=== PATIENT | female | born 1980 | race Two or more races ===

== ENCOUNTER 2024-03-04 09:30 | Inpatient (IN) | payer OTHER ==
[~2024-03-04] VITALS: Ht 154.9 cm; Wt 3.2 kg
[2024-03-04] MEDS ORDERED: XYZAL5 MG (10:12)
[2024-03-04] MEDS ORDERED: OBSTETRIX ONE1 EAC1 PO (10:13)
[2024-03-04 10:38] LABS: HEMATOCRIT 31.4 % (36.0-45.00); MEAN CELL VOLUME 80.5 fL (80.00-100.00); MEAN CORPUSCULAR HGB CONC 33.2 g/dl (32.0-36.0); PLATELET COUNT 209 K/uL (150-450); RED CELL DISTRIBUTION WIDTH 17.7 % (11.5-14.5)
[2024-03-04 10:39] LABS: PH,URINE 6.5 (5.0-8.0); URINE APPEARANCE Clear; URINE BILIRRUBIN Negative (NEGATIVE); URINE BLOOD Negative; URINE COLOR Yellow; URINE GLUCOSE Negative (NEGATIVE); URINE KETONE Negative (NEGATIVE); URINE LEUKOCYTE Small; URINE NITRATE Negative; URINE PROTEIN Negative (NEGATIVE)
[2024-03-04 10:41] LABS: URINE BACTERIA 2936.9 uL (0.0-1933); URINE EPITHELIAL CELLS 24.1 uL (0.0-38.8); URINE RBC 37.2 uL (0.0-20.8)
[2024-03-04 10:53] LABS: HEMOGLOBIN 10.4 g/dL (12.0-15.00); MEAN CORPUSCULAR HEMOGLOBIN 26.6 pg (27.00-32.0)
[2024-03-04 10:56] LABS: INR < 0.93; PARTIAL THROMBOPLASTIN TIME 25.4 SECONDS (22.0-34.0); PROTHROMBIN TIME 10.2 SECONDS (9.0-11.5)
[2024-03-04 11:10] LABS: ALBUMIN 2.8 gm/dL (3.4-5.0); BILIRUBIN TOTAL 0.33 mg/dL (0.3-1.2); CREATININE SERUM 0.58 mg/dL (0.55-1.02); GFR 114.56; POTASSIUM 3.92 mEq/L (3.5-5.1); TOTAL PROTEIN 6.8 gm/dL (6.4-8.2)
[2024-03-09] VITALS (7 sets, daily range): BP systolic 115–129; BP diastolic 75–79
[2024-03-09] MEDS ORDERED: RINGERS SOLUTION,LACTATED 1,000 ML IV SCH ×2 (01:45→05:00)
[2024-03-09] MEDS ORDERED: GENTAMICIN SULFATE 40 MG/ML VIAL IV SCH (01:45)
[2024-03-09] MEDS ORDERED: CITRIC ACID/SODIUM CITRATE 30 ML BLIST.PACK PO SCH (01:45)
[2024-03-09] MEDS ORDERED: CLINDAMYCIN PHOSPHATE 150 MG/ML (900mg) IV SCH (01:45)
[2024-03-09] MEDS ORDERED: MORPHINE SULFATE 4 MG/ML CARTRIDGE IV PRN ×2 (02:30→05:00)
[2024-03-09] MEDS ORDERED: MORPHINE SULFATE 2 MG/ML CARTRIDGE IV ONE (04:15)
[2024-03-09] MEDS ORDERED: OXYTOCIN 1,000 ML IV ONE (05:00)
[2024-03-09] MEDS ORDERED: ONDANSETRON HCL 2 MG/ML VIAL IV SCH (06:00)
[2024-03-09] MEDS ORDERED: ACETAMINOPHEN 500 MG GEL..CAP PO SCH (06:00)
[2024-03-09] MEDS ORDERED: KETOROLAC TROMETHAMINE 30 MG VIAL IV SCH (06:00)
[2024-03-09] MEDS ORDERED: OXYTOCIN 10 UNITS/ML VIAL IV ONE (06:30)
[2024-03-09] MEDS ORDERED: ERYTHROMYCIN BASE OPHT 1GM EACH TUBE OP ONE (06:30)
[2024-03-09] MEDS ORDERED: GABAPENTIN 300 MG CAPSULE PO SCH (09:00)
[2024-03-09] MEDS ORDERED: DOCUSATE SODIUM 100MG CAP PO SCH (09:00)
[2024-03-09] MEDS ORDERED: SIMETHICONE 125 MG CAPSULE PO SCH (09:00)
[2024-03-09 18:05] LABS: MEAN CELL VOLUME 81.2 fL (80.00-100.00); MEAN CORPUSCULAR HGB CONC 32.6 g/dl (32.0-36.0); PLATELET COUNT 185 K/uL (150-450); RED BLOOD COUNT 3.33 M/uL (4.00-6.00); RED CELL DISTRIBUTION WIDTH 17.9 % (11.5-14.5)
[2024-03-09 18:10] LABS: HEMOGLOBIN 8.8 g/dL (12.0-15.00); MEAN CORPUSCULAR HEMOGLOBIN 26.4 pg (27.00-32.0)
[2024-03-10] VITALS: BP 99/62
[2024-03-10] MEDS ORDERED: KETOROLAC TROMETHAMINE 10 MG TABLET PO SCH (08:00)
[2024-03-10] MEDS ORDERED: OxyCODONE HCL 5 MG TABLET (ROXICODONE) PO PRN (08:00)
[2024-03-10 08:40] VITALS: BP 115/70
[2024-03-10 13:22] VITALS: BP 133/69
[2024-03-10 14:47] VITALS: BP 102/60
[2024-03-10 20:09] VITALS: BP 110/65
[2024-03-11] VITALS: BP 113/73
[2024-03-11 08:35] VITALS: BP 115/70
[2024-03-11] MEDS ORDERED: IRON FUM,PS/FOLIC ACID/VITC/B3 1 CAP CAPSULE PO SCH (09:00)
[2024-03-11 13:18] VITALS: BP 142/80
[2024-03-11 17:18] VITALS: BP 104/69
[2024-03-12] VITALS: BP 110/73
[2024-03-12 08:15] VITALS: BP 109/77
== END 2024-03-12 14:43 | disposition home or self-care (01) | DRG 785 ==
LOC: LDR 03-09 00:44 → OB/GYN 03-09 00:44 → LDR 03-12 09:29 → OB/GYN 03-12 14:43
PROVIDERS: Obstetrics & Gynecology; ADMIT Obstetrics & Gynecology Gynecology; ATTEND Obstetrics & Gynecology Gynecology
PROC: 0UB70ZZ Excision of Bilateral Fallopian Tubes, Open Approach (ICD-10-PCS; 2024-03-09)
PROC: 4A1HXCZ Monitoring of Products of Conception, Cardiac Rate, External Approach (ICD-10-PCS; 2024-03-09)
PROC: 10D00Z1 Extraction of Products of Conception, Low, Open Approach (ICD-10-PCS; principal; 2024-03-09 07:15)
DX: O42.02 Full-term premature rupture of membranes, onset of labor within 24 hours of rupture (principal); O34.211 Maternal care for low transverse scar from previous cesarean delivery; Z3A.38 38 weeks gestation of pregnancy; Z37.0 Single live birth; Z30.2 Encounter for sterilization; Z20.822 Contact with and (suspected) exposure to COVID-19